=== PATIENT | female | born 1930 | race Caucasian/White ===

== ENCOUNTER 2018-03-18 21:26 | Emergency (ER) | payer OTHER ==
[~2018-03-18] VITALS: Ht 162.6 cm; Wt 68.0 kg
[2018-03-19] MEDS ORDERED: INTESTINEX680 M1 PO (02:59)
[2018-03-19] MEDS ORDERED: NITROFURANTOIN100 MG PO (02:59)
== END 2018-03-19 04:27 | disposition home or self-care (01) ==
LOC: ER 21:26
DX: J06.9 Acute upper respiratory infection, unspecified (principal); N39.0 Urinary tract infection, site not specified

== ENCOUNTER 2018-04-15 20:54 | Emergency (ER) | payer OTHER ==
[~2018-04-15] VITALS: Ht 154.9 cm; Wt 45.4 kg
[~2018-04-15 20:54] MED LIST: INTESTINEX680 M1 PO; NITROFURANTOIN100 MG PO
== END 2018-04-16 14:13 | disposition home or self-care (01) ==
LOC: ER 20:54
DX: L97.523 Non-pressure chronic ulcer of other part of left foot with necrosis of muscle (principal); N39.0 Urinary tract infection, site not specified

== ENCOUNTER 2018-04-20 13:04 | Emergency (ER) | payer OTHER ==
[~2018-04-20] VITALS: Ht 152.4 cm; Wt 54.4 kg
[2018-04-20] MEDS ORDERED: DONEPEZIL HCL OD5 MG (13:27)
[2018-04-20] MEDS ORDERED: ATIVAN1 M1 (13:27)
[2018-04-20] MEDS ORDERED: PNEU16DI2 ×2 (13:28→13:29)
[2018-04-20] MEDS ORDERED: OLANZAPINE2.5 MG (13:28)
[2018-04-20] MEDS ORDERED: RESTORIL30 M1 (13:28)
== END 2018-04-20 22:01 | disposition home or self-care (01) ==
LOC: ER 13:04
DX: T50.991A Poisoning by other drugs, medicaments and biological substances, accidental (unintentional), initial encounter (principal); I95.2 Hypotension due to drugs; E86.0 Dehydration; N39.0 Urinary tract infection, site not specified; Y92.89 Other specified places as the place of occurrence of the external cause

== ENCOUNTER 2018-06-04 07:51 | Inpatient (IN) | payer OTHER ==
[~2018-06-04] VITALS: Ht 147.3 cm; Wt 45.4 kg
[~2018-06-04 07:51] MED LIST changes: +ATIVAN1 M1; +DONEPEZIL HCL OD5 MG; +OLANZAPINE2.5 MG; +PNEU16DI2; +RESTORIL30 M1
[2018-06-04] MEDS ORDERED: TRAMADOL HCL100 MG (08:30)
[2018-06-04] MEDS ORDERED: TEMAZEPAM7.5 MG (08:31)
[2018-06-04] MEDS ORDERED: RISPERDAL3 MG (08:31)
[2018-06-04] MEDS ORDERED: LORAZEPAM2 MG/1 M1 (08:31)
[2018-06-04] MEDS ORDERED: DONEPEZIL HCL10 MG (08:32)
[2018-06-04] MEDS ORDERED: BACLOFEN10 MG (08:32)
== END 2018-07-04 21:31 | disposition other institution (70) | DRG 570 ==
LOC: ER 07:51 → ICU-2 12:47 → SEC-K 06-14 15:57 → MEDI 06-14 16:19 → MEDJ 06-14 16:19 → MEDI 06-18 08:51
PROVIDERS: ADMIT Internal Medicine
PROC: 0JB70ZZ Excision of Back Subcutaneous Tissue and Fascia, Open Approach (ICD-10-PCS; principal; 2018-06-04)
PROC: 0JBR0ZZ Excision of Left Foot Subcutaneous Tissue and Fascia, Open Approach (ICD-10-PCS; 2018-06-04)
PROC: 0JBN0ZZ Excision of Right Lower Leg Subcutaneous Tissue and Fascia, Open Approach (ICD-10-PCS; 2018-06-04)
PROC: B246ZZZ Ultrasonography of Right and Left Heart (ICD-10-PCS; 2018-06-04)
PROC: 4A12X4Z Monitoring of Cardiac Electrical Activity, External Approach (ICD-10-PCS; 2018-06-04)
PROC: 3E0F7GC Introduction of Other Therapeutic Substance into Respiratory Tract, Via Natural or Artificial Opening (ICD-10-PCS; 2018-06-04)
PROC: 4A033R1 Measurement of Arterial Saturation, Peripheral, Percutaneous Approach (ICD-10-PCS; 2018-06-04)
PROC: 30233N1 Transfusion of Nonautologous Red Blood Cells into Peripheral Vein, Percutaneous Approach (ICD-10-PCS; 2018-06-07)
PROC: 02HV33Z Insertion of Infusion Device into Superior Vena Cava, Percutaneous Approach (ICD-10-PCS; 2018-06-07)
PROC: BB24ZZZ Computerized Tomography (CT Scan) of Bilateral Lungs (ICD-10-PCS; 2018-06-16)
PROC: 0JB70ZZ Excision of Back Subcutaneous Tissue and Fascia, Open Approach (ICD-10-PCS; 2018-06-19)
PROC: 0JBR0ZZ Excision of Left Foot Subcutaneous Tissue and Fascia, Open Approach (ICD-10-PCS; 2018-06-19)
PROC: 0JBN0ZZ Excision of Right Lower Leg Subcutaneous Tissue and Fascia, Open Approach (ICD-10-PCS; 2018-06-19)
PROC: 8E0ZXY6 Isolation (ICD-10-PCS; 2018-06-20)
PROC: 0JB70ZZ Excision of Back Subcutaneous Tissue and Fascia, Open Approach (ICD-10-PCS; 2018-06-25)
PROC: 0JBR0ZZ Excision of Left Foot Subcutaneous Tissue and Fascia, Open Approach (ICD-10-PCS; 2018-06-25)
PROC: 0JBN0ZZ Excision of Right Lower Leg Subcutaneous Tissue and Fascia, Open Approach (ICD-10-PCS; 2018-06-25)
PROC: 0JB70ZZ Excision of Back Subcutaneous Tissue and Fascia, Open Approach (ICD-10-PCS; 2018-07-03)
PROC: 0JBR0ZZ Excision of Left Foot Subcutaneous Tissue and Fascia, Open Approach (ICD-10-PCS; 2018-07-03)
PROC: 0JBN0ZZ Excision of Right Lower Leg Subcutaneous Tissue and Fascia, Open Approach (ICD-10-PCS; 2018-07-03)
DX: L89.153 Pressure ulcer of sacral region, stage 3 (principal); A41.51 Sepsis due to Escherichia coli [E. coli]; I21.4 Non-ST elevation (NSTEMI) myocardial infarction; R65.21 Severe sepsis with septic shock; J16.8 Pneumonia due to other specified infectious organisms; I50.33 Acute on chronic diastolic (congestive) heart failure; M86.172 Other acute osteomyelitis, left ankle and foot; N39.0 Urinary tract infection, site not specified; N17.8 Other acute kidney failure; E27.49 Other adrenocortical insufficiency; E86.0 Dehydration; B96.29 Other Escherichia coli [E. coli] as the cause of diseases classified elsewhere; B96.89 Other specified bacterial agents as the cause of diseases classified elsewhere; B96.4 Proteus (mirabilis) (morganii) as the cause of diseases classified elsewhere; B95.62 Methicillin resistant Staphylococcus aureus infection as the cause of diseases classified elsewhere; Z74.01 Bed confinement status; G30.8 Other Alzheimer's disease; F02.80 Dementia in other diseases classified elsewhere, unspecified severity, without behavioral disturbance, psychotic disturbance, mood disturbance, and anxiety; I25.10 Atherosclerotic heart disease of native coronary artery without angina pectoris; R09.02 Hypoxemia; Z66 Do not resuscitate; D50.0 Iron deficiency anemia secondary to blood loss (chronic); D69.49 Other primary thrombocytopenia; E88.09 Other disorders of plasma-protein metabolism, not elsewhere classified; I11.0 Hypertensive heart disease with heart failure; I35.0 Nonrheumatic aortic (valve) stenosis; Z78.9 Other specified health status; J06.9 Acute upper respiratory infection, unspecified; L97.524 Non-pressure chronic ulcer of other part of left foot with necrosis of bone